=== PATIENT | male | born 1935 | race Caucasian/White ===

== ENCOUNTER 2023-06-11 11:33 | Emergency (ER) | payer OTHER | END 2023-06-11 14:27 | disposition home or self-care (01) | LOC: MADERS 11:33 | DX: S40.812A Abrasion of left upper arm, initial encounter (principal); M54.6 Pain in thoracic spine; I10 Essential (primary) hypertension; V43.52XA Car driver injured in collision with other type car in traffic accident, initial encounter; Z95.5 Presence of coronary angioplasty implant and graft | CPT/HCPCS: 36416; 70450; 71250; 72125 ==